=== PATIENT | male | born 1985 | race African-American/Black ===

== ENCOUNTER 2016-09-10 22:13 | Inpatient (IN) | payer OTHER, MEDICARE ==
[~2016-09-10] VITALS: Ht 175.3 cm; Wt 97.5 kg
[~2016-09-10 22:13] MED LIST: RISPERDAL25 MG/2 ML INJ; RISPERIDONE2 M1 PO; TRAZODONE HCL50 M1 PO; VYVANSE30 M1
[2016-09-10] MEDS ORDERED: BENZTROPINE MESY1 M1 PO (22:21)
[2016-09-10] MEDS ORDERED: RISPERIDONE2 M1 PO (22:22)
--- NOTE | 2016-09-10 22:38 | ED PSYCHIATRIC COMPLAINT ---
History of Present Illness General Chief Complaint: Psychiatric Related Complaint Stated Complaint: BIBA FOR ANXIETY Source: patient Exam Limitations: no limitations Vital Signs & Intake/Output Vital Signs & Intake/Output Vital Signs Date Time Temp Pulse Resp B/P B/P Pulse O2 O2 Flow FiO2 Mean Ox Delivery Rate 09/11 0724 98.6 67 16 111/61 09/10 2231 97.8 60 18 106/57 100 Room Air ED Intake and Output 09/11 0000 09/10 1200 Intake Total Output Total Balance Patient 215 lb Weight Weight Reported by Patient Measurement Method Allergies Coded Allergies: divalproex sodium (From DEPAKOTE) (Mild, UPSET STOMACH 11/10/15) quetiapine (From SEROQUEL) (Mild, ABDOMINAL CRAMPING 11/10/15) Triage Note: PT WITH HX PTSD AND SCHIZOPHRENIA BIBA FROM TRANSITIONAL HOME FOR ANXIETY. PT REPORTS MIND RACING, FEELING SCATTERED. PT DENIES SI/HI. PT A/O X4. PT SPEAKING SOFTLY AND LOW. PT HAS NO PHYSICAL COMPLAINTS. Triage Nurses Notes Reviewed? yes Onset: Gradual Duration: week(s): Severity: mild, moderate Associated Symptoms: anxiety, PTSD HPI: 30-year-old gentleman history of schizophrenia presents from his transitional home with a history of racing in disorganized thoughts. Per the transitional home, he has been having these disorganized racing thoughts. He affirms that he has been feeling more anxious lately. He denies suicidality, homicidality, hallucinations. He denies drug use. (JESSICA FARRAR,AGAPITO Coyne) Reconcile Medications Benztropine Mesylate 1 MG TABLET 1 TAB PO BID MENTAL HEALTH (Reported) Risperidone 2 MG TABLET 1 TAB PO D MENTAL HEALTH (Reported) Risperidone Microspheres (Risperdal Consta) (Unknown Strength) SYRINGE ( Unknown Dose) INJ Q2W MENTAL HEALTH (Reported) (JAMES FARRAR,ISABELA No) Past History Travel History Traveled to [place] past 21 day No Medical History Any Pertinent Medical History? see below for history Neurological: CONCUSSION 2004 EENT: NONE Cardiovascular: NONE Respiratory: NONE Gastrointestinal: NONE Hepatic: NONE Renal: NONE Musculoskeletal: NONE Psychiatric: bipolar disease, schizophrenia Endocrine: NONE Blood Disorders: NONE Cancer(s): NONE History of MRSA: No History of VRE: No History of CDIFF: No Surgical History Surgical History: unobtainable (per patient), N Psychosocial History Who do you live with Family Services at Home None What is your primary language Polish Tobacco Use: Current Daily Use Daily Tobacco Use Amount/Type: => 5 Cigarettes daily Family History Family History, If Any: FATHER (Diabetes). Hx Contributory? No (JESSICA FARRAR,AGAPITO Coyne) Review of Systems Review of Systems Constitutional: Reports: no symptoms. EENTM: Reports: no symptoms. Respiratory: Reports: no symptoms. Cardiovascular: Reports: no symptoms. GI: Reports: no symptoms. Genitourinary: Reports: no symptoms. Musculoskeletal: Reports: no symptoms. Skin: Reports: no symptoms. Neurological/Psychological: Reports: no symptoms. Hematologic/Endocrine: Reports: no symptoms. Immunologic/Allergic: Reports: no symptoms. All Other Systems: Reviewed and Negative (JESSICA FARRAR,AGAPITO Coyne) Physical Exam Physical Exam General Appearance: well developed/nourished, mild distress Head: atraumatic Eyes: Bilateral: PERRL, EOMI. Ears, Nose, Throat: normal pharynx, normal ENT inspection, hearing grossly normal Neck: normal inspection, supple Respiratory: normal breath sounds Cardiovascular: regular rate/rhythm Gastrointestinal: soft, non-tender Extremities: normal range of motion Neurological/Psychiatric: no motor/sensory deficits, calm, flat, oriented x 3 Appearance/Memory/Insight: appropriate appearance, impaired insight Behavoir/Eye Contact/Speech: cooperative Skin: intact, normal color, warm/dry SAD PERSONS SAD PERSONS Response Value Male Sex? yes 1 Depression/Hopelessness? yes 2 Social Support? has support 0 Total 3 SAD PERSONS Done? yes (JESSICA FARRAR,AGAPITO Coyne) Progress Differential Diagnosis: IT'S fRENI VERSUS DEPRESSION VERSUS ptsd VERSUS OTHER Plan of Care: Orders Procedure Date/time Status Regular Diet 09/11 L Active Regular Diet 09/11 B Complete EKG 09/11 1200 Active Patient Data - inpatient psych 09/11 1046 Active Admit to inpatient psych 09/11 1046 Active Continuous Observation Monitor 09/11 0820 Active Continuous Observation Monitor 09/11 0001 Active URINE DRUG SCREEN FOR ER ONLY 09/11 0001 Complete ETHANOL 09/11 0001 Complete COMPREHENSIVE METABOLIC PANEL 09/11 0001 Complete CBC WITHOUT DIFFERENTIAL 09/11 0001 Complete ED CRISIS PSYCH CONSULT 09/11 0001 Active Vital Signs 09/11 UNK Active Activity/Ambulation 09/11 UNK Active Current Medications Sig/Carson Start time Last Medication Dose Stop Time Status Admin Risperidone 25 MG Q 2 WEEKS 09/14 1000 UNVr (Risperdal) Risperidone 2 MG DAILY 09/12 1000 UNVr (Risperidone) Benztropine Mesylate 1 MG BID 09/11 2200 UNVr (Cogentin 1 MG Tablet) Risperidone 2 MG ONCE ONE 09/11 1030 CAN (Risperidone) 09/11 1031 Benztropine Mesylate 1 MG BID 09/11 1014 UNVr 09/11 (Cogentin 1 MG 1030 Tablet) Laboratory Tests 09/11/16 0727: Urine Opiates Screen < 100.00, Methadone Screen < 40, Barbiturate Screen < 60, Ur Phencyclidine Scrn < 6.00, Amphetamines Screen < 100, U Benzodiazepines Scrn < 85, Urine Cocaine Screen < 50, Urine Cannabis Screen < 5.00 09/11/16 0025: Anion Gap 12, Estimated GFR > 60, BUN/Creatinine Ratio 8.9, Glucose 107 H, Calcium 9.1, Total Bilirubin 0.5, AST 21, ALT 33, Alkaline Phosphatase 75, Total Protein 6.9, Albumin 4.0, Globulin 2.9, Albumin/Globulin Ratio 1.4, CBC w Diff NO MAN DIFF REQ, RBC 4.47 L, MCV 83.8, MCH 27.8, RDW 12.6, MPV 8.0, Gran % 35.0 L, Lymphocytes % 54.2 H, Monocytes % 7.4, Eosinophils % 3.0, Basophils % 0.4, Absolute Granulocytes 1.8, Absolute Lymphocytes 2.8, Absolute Monocytes 0.4, Absolute Eosinophils 0.2, Absolute Basophils 0, PUBS MCHC 33.1, Serum Alcohol < 10.0 Hand-Off Endorsed To: ISABELA RAMIREZ MD Endorsed Time: 07 Pending: consult, labs (AGAPITO LOPEZ MD) Departure Departure Disposition: STILL A PATIENT Condition: Stable Clinical Impression Primary Impression: Schizophrenia Referrals: PATIENT HAS NO PRIMARY CARE DR (PCP/Family) Departure Forms: Customer Survey General Discharge Information (JESSICA FARRAR,AGAPITO Coyne) Psych Admission Note Psychiatric Admission: I have seen and evaluated FELICIA MORALES JR. I have also reviewed all the pertinent lab results and diagnostic results. FELICIA MORALES JR will be admitted to our inpatient Psychiatric unit for treatment and care. (ISABELA RAMIREZ MD)
--- NOTE | 2016-09-10 22:41 | NUR ---
PT WANDED AND CHANGED INTO PAPER SCRUBS. ONE BAG OF CLOTHES AND ONE BAG OF VALUABLES LOCKED UP
--- NOTE | 2016-09-10 23:01 | NUR ---
ASSUMED PRIMARY CARE OF PT. +ANXIETY "MIND RACING" DENIES SI/HI.
[2016-09-11 00:44] LABS: ABSOLUTE BASOPHIL COUNT 0 /CUMM (0.0-0.2); ABSOLUTE EOSINOPHIL COUNT 0.2 /CUMM (0.0-0.7); ABSOLUTE GRANULOCYTE CT 1.8 /CUMM (1.4-6.5); ABSOLUTE LYMPH COUNT 2.8 /CUMM (1.2-3.4); ABSOLUTE MONOCYTE COUNT 0.4 /CUMM (0.10-0.60); BASOPHIL % 0.4 % (0.0-2.0); HEMATOCRIT 37.5 % (42-52); MEAN CORPUSCULAR HGB 27.8 PG (27.0-31.0); MEAN CORPUSCULAR HGB CONC 33.1 G/DL (33.0-37.0); MEAN CORPUSCULAR VOLUME 83.8 FL (80.0-94.0); PLATELET COUNT 263 /CUMM (130-400); RBC DISTRIBUTION WIDTH 12.6 % (11.5-14.5); RED BLOOD CELL CT 4.47 /CUMM (4.70-6.10); WHITE BLOOD CELL COUNT 5.2 /CUMM (4.8-10.8)
--- NOTE | 2016-09-11 00:49 | NUR ---
PT SLEEPING SOUNDLY WITH EVEN NONLABORED RESPIRATIONS. SITTER IN PLACE
--- NOTE | 2016-09-11 02:18 | NUR ---
PT HAS YET TO PROVIDE URINE SAMPLE. SLEEPING SOUNDLY WITH EASY WOB. SITTER IN PLACE.
--- NOTE | 2016-09-11 05:45 | NUR ---
PT CONTINUES TO SLEEP. REGULAR RESPIRATIONS NOTED. SITTER REMAINS IN ATTENDANCE
--- NOTE | 2016-09-11 07:27 | NUR ---
PT PROVIDED URINE. URINE TRIO SENT. AWARE OF INITIAL CRISIS EVAL THIS AM. Informed waiting has been performed.
--- NOTE | 2016-09-11 09:26 | NUR ---
SPOKE WITH YESSENIA FROM [facility] IN [place]. THEY CAN BE CALLED WITH QUESTIONS REGARDING PT. [phone].
--- NOTE | 2016-09-11 10:15 | NUR ---
OFFERED TO MOVE PT OUT OF THE HALLWAY AND INTO A ROOM. DECLINING AT THIS TIME.
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
--- NOTE | 2016-09-11 10:30 | NUR ---
CRISIS WITH PT.
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
--- NOTE | 2016-09-11 12:28 | NUR ---
SPOKE WITH [facility] IN [facility] FOR FINGER FOOD REGULAR DIET LUNCH TRAY.
--- NOTE | 2016-09-11 12:30 | NUR ---
PLAN IS FOR ADMISSION. Informed waiting has been performed.
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
--- NOTE | 2016-09-11 14:30 | NUR ---
CONTINUES TO AWAIT BED IN [facility]. Informed waiting has been performed.
--- NOTE | 2016-09-11 15:51 | NUR ---
REPORT GIVEN TO CPS
--- NOTE | 2016-09-11 15:56 | NUR ---
1 BELONGINGS BAG AND 1 VALUABLES BAG TAKEN OUT OF CLOSET AND ED SAFE FOR TRANSPORT. VOLUNTARY FORM SENT WITH PAPERWORK. PT CALM, COOPERATIVE, A+OX4.
[2016-09-11 16:45] VITALS: BP 136/63
[2016-09-11] MEDS ORDERED: INVEGA3 MG IM (17:03)
--- NOTE | 2016-09-11 17:31 | NUR ---
Pt present within the community on the periphery and intermittently engaging with peers and staff, pleasant, calm and cooperative. Pt is also disorganized at times and reported that his transitional housing gives him "a hard time" and that they on a consistent basis "record me and play it on reality T.V. just look it up and you'll see me, they make me look bad". When asked directly denies SI/HI/hallucinations however does appear to be "zoning out" and staring off and internally preoccupied throughout our admission intake and required redirection back to the conversation. No other overt psychotic s/sx observed or reported. Pt reports + energy/sleep and appetite. Skin that is visible is clean dry and intact and denies any other alterations or abnormalities that are not visible, denies any pain or medical issues just "I have PTSD". At this point pt is stable with no issues or complaints.
--- NOTE | 2016-09-11 19:09 | History & Physical ---
General Information and HPI MD Statement: I have seen and personally examined CARMEN ZURITAFELICIA and documented this H&P. The patient is a 30 year old M who presented with a patient stated chief complaint of [medical evaluation]. Source of Information: patient Exam Limitations: clinical condition, poor historian History of Present Illness: 30 YO AA Male with PMHx of schizophrenia came to ER from his transitional home for racing and disorganized thoughts. He was sleeping when I went to see him, and woke up little disoriented. Later he was more composed in his thoughts but still delayed responses, staring spells. On ROS, he complains of chronic non-productive cough since one month, "seasonal " according to him and does not bother him, not associated with CP, SOB, fever, chills, URI symptoms. He also mentioned that since 2 weeks he has been getting increased frequency in urination and itching but no burning, lower abdo or back pain, penile discharge. He thought he may have "venereal disease" and asked "them" to check (not sure whom, he is not clear). He denied any intercourse in last one year and used to be protected before that. He said that he has been feeling more anxious lately but denies suicidality, homicidality, hallucinations. No headache, dizziness, vision problems, diarrhea, vomiting, constipation or skin rash. Not been incarcerated recently. Allergies/Medications Allergies: Coded Allergies: divalproex sodium (From DEPAKOTE) (Mild, UPSET STOMACH 11/10/15) quetiapine (From SEROQUEL) (Mild, ABDOMINAL CRAMPING 11/10/15) Home Med list Benztropine Mesylate 1 MG TABLET 1 TAB PO BID MENTAL HEALTH (Reported) Paliperidone (Invega) (Unknown Strength) TAB.ER.24 (Unknown Dose) IM Q 2 WEEKS schizo (Reported) Risperidone 2 MG TABLET 1 TAB PO D MENTAL HEALTH (Reported) Risperidone Microspheres (Risperdal Consta) (Unknown Strength) SYRINGE ( Unknown Dose) INJ Q2W MENTAL HEALTH (Reported) Compliance With Home Meds: UNKNOWN Past History Travel History Traveled to [place] past 21 day No Medical History Neurological: CONCUSSION 2004 EENT: NONE Cardiovascular: NONE Respiratory: NONE Gastrointestinal: NONE Hepatic: NONE Renal: NONE Musculoskeletal: NONE Psychiatric: bipolar disease, schizophrenia Endocrine: NONE Blood Disorders: NONE Cancer(s): NONE History of MRSA: No History of VRE: No History of CDIFF: No Isolation History: Standard Influenza Vaccine: 02/14/16 Surgical History Surgical History: unobtainable (per patient), N Past Family/Social History Family History Relations & Conditions if any FATHER (Diabetes). Psychosocial History Where do you live? Other Services at Home: None Primary Language: Sinhala Smoking Status: Current Everyday Smoker (1 ppd) ETOH Use: occasional use Illicit Drug Use: denies illicit drug use Functional Ability ADLs Independent: dressing, eating, toileting, bathing. Ambulation: independent IADLs Independent: transportation, medication admin. Sexual History Past Sexual History Unobtainable at this time Review of Systems Review of Systems Constitutional: Reports: no symptoms. EENTM: Reports: no symptoms. Cardiovascular: Reports: no symptoms. Respiratory: Reports: cough. Denies: hemoptysis, orthopnea, short of breath, sputum production, stridor, wheezing. GI: Reports: no symptoms. Genitourinary: Reports: frequency, urgency. Denies: discharge, dysuria, hesitation, nocturia, pain. Musculoskeletal: Reports: no symptoms. Skin: Reports: no symptoms. Neurological/Psychological: Reports: no symptoms. Hematologic/Endocrine: Reports: no symptoms. All Other Systems: Reviewed and Negative Exam & Diagnostic Data Last 24 Hrs of Vital Signs/I&O Vital Signs Date Time Temp Pulse Resp B/P B/P Pulse O2 O2 Flow FiO2 Mean Ox Delivery Rate 09/11 2004 97.7 56 138/58 09/11 1645 97.9 60 136/63 09/11 1450 96.3 52 14 115/61 100 Room Air 09/11 1219 96.9 81 16 114/57 98 Room Air 09/11 0724 98.6 67 16 111/61 09/10 2231 97.8 60 18 106/57 100 Room Air Intake & Output 09/11 0000 09/11 0800 09/11 1600 Intake Total Output Total Balance Patient 97.522 kg Weight Weight Reported by Patient Measurement Method Physical Exam General Appearance Alert, Oriented X3, Cooperative, No Acute Distress Skin No Rashes, No Breakdown HEENT Atraumatic, PERRLA, EOMI, left eye: mild droop but no Ptosis Neck Supple, No JVD, No thryomegaly, +2 Carotid Pulse wo Bruit Lymphatic Cervical nl Cardiovascular Regular Rate, Normal S1, Normal S2, No Murmurs Lungs Clear to Auscultation, Normal Air Movement Abdomen Normal Bowel Sounds, Soft, No Tenderness Neurological Exam Findings: Normal Gait, Normal Speech, Strength at 5/5 X4 Ext, Normal Tone, Sensation Intact, Cranial Nerves 3-12 NL, Reflexes 2+ Cranial Nerves II through XII: 3 to 12 intact Extremities No Clubbing, No Cyanosis, No Edema, Normal Pulses Vascular Normal Pulses, Pulses Symmetrical Last 24 Hrs of Labs/Maykel: Laboratory Tests 09/11/16726: Urine Opiates Screen < 100.00, Methadone Screen < 40, Barbiturate Screen < 60, Ur Phencyclidine Scrn < 6.00, Amphetamines Screen < 100, U Benzodiazepines Scrn < 85, Urine Cocaine Screen < 50, Urine Cannabis Screen < 5.00, Urine Color YEL, Urine Clarity CLEAR, Urine pH 6.0, Ur Specific [place] 1.020, Urine Protein NEG, Urine Ketones NEG, Urine Nitrite NEG, Urine Bilirubin NEG, Urine Urobilinogen 0.2, Ur Leukocyte Esterase NEG, Ur Microscopic EXAM NOT REQUIRED, Urine Hemoglobin NEG, Urine Glucose NEG 09/11/16 0025: Anion Gap 12, Estimated GFR > 60, BUN/Creatinine Ratio 8.9, Glucose 107 H, Calcium 9.1, Total Bilirubin 0.5, AST 21, ALT 33, Alkaline Phosphatase 75, Total Protein 6.9, Albumin 4.0, Globulin 2.9, Albumin/Globulin Ratio 1.4, CBC w Diff NO MAN DIFF REQ, RBC 4.47 L, MCV 83.8, MCH 27.8, RDW 12.6, MPV 8.0, Gran % 35.0 L, Lymphocytes % 54.2 H, Monocytes % 7.4, Eosinophils % 3.0, Basophils % 0.4, Absolute Granulocytes 1.8, Absolute Lymphocytes 2.8, Absolute Monocytes 0.4, Absolute Eosinophils 0.2, Absolute Basophils 0, PUBS MCHC 33.1, Serum Alcohol < 10.0 Microbiology 09/11 726 URINE ROUT: Urine Culture - RECD Assessment/Plan Assessment: # PTSD, schizoaffective disorder: agree with Psychiatry # Chronic non-productive cough : clear to auscultate, no constitutional symptoms. Conservative management # itching and burning in Urine: UA, culture, GC, Chlamydia DNA probe As Ranked By This Provider Problem List: 1. Anxiety 2. Urinary frequency Miscellaneous Miscellaneous Documentation Attending Case Discussed With: KIRBY FARRAR,SHANNON Olea Primary Care Physician: PATIENT HAS NO PRIMARY CARE DR Patient sees these Specialists none Level of Patient Care: YOUSIF Quiroga
[2016-09-11 20:05] VITALS: BP 138/58
--- NOTE | 2016-09-11 23:03 | NUR ---
PATIENT HAS BEEN CALM AND COOPERATIVE ALL SHIFT, IN [place] AT TIMES, PLEASANT; DENIES S/I, H/I, A/H, V/H; PATIENT COMPLIANT WITH TREATMENT PLAN.
--- NOTE | 2016-09-12 00:08 | Admission Certification ---
Admission Certification Certification Statement - As attending physician, I certify that at the time of - admission, based on clinical presentation, severity of - symptoms, need for further diagnostic testing and - therapeutic interventions, and risk of adverse outcomes - without in-hospital treatment, in my clinical assessment, - this patient requires an acute hospital stay for a minimum - of two nights or longer. I have also considered psychsocial - factors such as support system, advanced age, financial - issues, cognitive issues, and failed out-patient treatments, - past re-admission history, safety of patient, and lack of - compliance as applicable. Specific rationale supporting this admission is: PTSD, schizoaffective disorder
--- NOTE | 2016-09-12 05:27 | NUR ---
PATIENT SLEPT ALL NIGHT.
[2016-09-12 08:04] VITALS: BP 123/77
--- NOTE | 2016-09-12 12:07 | CP SOUTH PROGRESS NOTE PSYCH ---
Psych (Inpt) Progress Note Progress Note Include the following elements, when applicable: Involvement in the active treatment of the patient with behavioral observations of the patient and the patient's response to the treatment. Review of the ongoing treatment process in the context of the treatment plan. Indication of how multi-disciplinary staff members are carrying out the treatment plan. Plans for future interventions and recommendations for revision of the treatment plan. Liaison with other physicians/providers. Progress Note: Pt notes that "I had too much sugar, a sugar high" which led to his hospitalization. Does want to remain on the risperidone for the time being. Concerned about oversedation with consta. Denies SI or HI. Denies AVHs though michelle KENT. Current Medications Sig/[place] Start time Last Medication Dose Route Stop Time Status Admin Benztropine Mesylate 1 MG BID 09/11 2200 AC 09/12 PO 0951 Hydroxyzine HCl 25 MG 4 TIMES/DAY PRN 09/11 1245 AC PO Nicotine 7 MG DAILY 09/12 1000 AC TOP Nicotine 2 MG Q2P PRN 09/11 1230 AC PO Risperidone 25 MG Q 2 WEEKS 09/14 1000 AC IM Risperidone 3 MG DAILY 09/13 1000 UNVr PO Risperidone 2 MG DAILY 09/12 1000 DC 09/12 PO 0951 Trazodone HCl 50 MG AT BEDTIME NEED.. 09/11 1245 AC PO Laboratory Tests 09/12 09/11 0605 0727 Chemistry Hemoglobin A1c (4.2 - 5.8 %) Pending Triglycerides (<150 mg/dL) 90 Cholesterol (< 200 MG/DL) 121 LDL Cholesterol, Calc (65 - 129 mg/dL) 73 HDL Cholesterol (40 - 60 mg/dL) 30 L Cholesterol/HDL Ratio (0.00 - 4.88 %) 4 Vitamin B12 (239 - 931 pg/mL) 301 TSH &T3 &Free T4 Intrp (0.27 - 4.20 uIU/mL) 1.490 Toxicology Urine Opiates Screen (>2000 NG/ML) < 100.00 Methadone Screen (>300 NG/ML) < 40 Barbiturate Screen (>200 NG/ML) < 60 Ur Phencyclidine Scrn (>25 NG/ML) < 6.00 Amphetamines Screen (>1000 NG/ML) < 100 U Benzodiazepines Scrn (>200 NG/ML) < 85 Urine Cocaine Screen (>300 NG/ML) < 50 Urine Cannabis Screen (>50 NG/ML) < 5.00 Urines Urine Color (YEL,AMB,STR) YEL Urine Clarity (CLEAR) CLEAR Urine pH (5.0 - 8.0) 6.0 Ur Specific [place] (1.001 - 1.035) 1.020 Urine Protein (NEG,<30 MG/DL) NEG Urine Ketones (NEG) NEG Urine Nitrite (NEG) NEG Urine Bilirubin (NEG) NEG Urine Urobilinogen (0.1 - 1.0 EU/dl) 0.2 Ur Leukocyte Esterase (NEG) NEG Ur Microscopic EXAM NOT REQUIRED Urine Hemoglobin (NEG) NEG Urine Glucose (N MG/DL) NEG 09/11 0025 Chemistry Sodium (137 - 145 mmol/L) 141 Potassium (3.5 - 5.1 mmol/L) 4.1 Chloride (98 - 107 mmol/L) 105 Carbon Dioxide (22 - 30 mmol/L) 25 Anion Gap (5 - 16) 12 BUN (9 - 20 mg/dL) 8 L Creatinine (0.7 - 1.2 mg/dL) 0.9 Estimated GFR (>60 ml/min) > 60 BUN/Creatinine Ratio (7 - 25 %) 8.9 Glucose (65 - 99 mg/dL) 107 H Calcium (8.4 - 10.2 mg/dL) 9.1 Total Bilirubin (0.2 - 1.3 mg/dL) 0.5 AST (17 - 59 U/L) 21 ALT (21 - 72 U/L) 33 Alkaline Phosphatase (< 127 U/L) 75 Total Protein (6.3 - 8.2 g/dL) 6.9 Albumin (3.5 - 5.0 g/dL) 4.0 Globulin (1.9 - 4.2 gm/dL) 2.9 Albumin/Globulin Ratio (1.1 - 2.2 %) 1.4 Hematology CBC w Diff NO MAN DIFF REQ WBC (4.8 - 10.8 /CUMM) 5.2 RBC (4.70 - 6.10 /CUMM) 4.47 L Hgb (14.0 - 18.0 G/DL) 12.4 L Hct (42 - 52 %) 37.5 L MCV (80.0 - 94.0 FL) 83.8 MCH (27.0 - 31.0 PG) 27.8 RDW (11.5 - 14.5 %) 12.6 Plt Count (130 - 400 /CUMM) 263 MPV (7.4 - 10.4 FL) 8.0 Gran % (42.2 - 75.2 %) 35.0 L Lymphocytes % (20.5 - 51.1 %) 54.2 H Monocytes % (1.7 - 9.3 %) 7.4 Eosinophils % (0 - 5 %) 3.0 Basophils % (0.0 - 2.0 %) 0.4 Absolute Granulocytes (1.4 - 6.5 /CUMM) 1.8 Absolute Lymphocytes (1.2 - 3.4 /CUMM) 2.8 Absolute Monocytes (0.10 - 0.60 /CUMM) 0.4 Absolute Eosinophils (0.0 - 0.7 /CUMM) 0.2 Absolute Basophils (0.0 - 0.2 /CUMM) 0 PUBS MCHC (33.0 - 37.0 G/DL) 33.1 Toxicology Serum Alcohol (<10 MG/DL) < 10.0 Vital Signs Date Time Temp Pulse Resp B/P B/P Pulse O2 O2 Flow FiO2 Mean Ox Delivery Rate 09/12 0804 98.4 62 123/77 09/11 2004 97.7 56 138/58 09/11 1645 97.9 60 136/63 09/11 1450 96.3 52 14 115/61 100 Room Air 09/11 1219 96.9 81 16 114/57 98 Room Air MSE Appears as stated age. Cooperative behavior, good, no eye contact. Nl speech rate and prosody. No psychomotor retardation or agitation. Mood OK, I had a sugar high Affect bizzare, constricted, appropriate, non-liable. Linear and goal directed thought process. Denies SI or HI. Does not appear to be responding to internal stimuli. Denies AVHs, ?paranoia, ?delusions. I/J: limited Pt with hx of schizophrenia now with worsening psychosis. - Increase risperidone to 3mg daily - Consta ordered for TuesdaySeptember 14 at 25mg, however, given worsening psychosis and low dose, would consider increase to 37.5mg dose for next administration though pt notes that was previously on higher dose (37.5mg or 50mg, pt unsure) and had excessive sedation. Need treatment hx to determine if can increase. If not, consider paliperidone or another long-acting agent. - Encourage groups - COllateral from outpt tx needed
[2016-09-12 12:21] VITALS: BP 139/61
--- NOTE | 2016-09-12 13:38 | NUR ---
PT IS ISOALTIVE IN ROOM FOR MOST OF THE SHIFT. PT HAS LITTLE TO NO INTERACTION WITH STAFF AND OTHER PTS. PT IS COMPLIANT AND COOPERATIVE WITH UNIT RULES. PT IS NOT ATTENDING GROUPS. PT MOOD IS STABLE WITH A CONSTRICTED AFFECT. PT DENIES SI THOUGHTS.
[2016-09-12 15:49] VITALS: BP 133/71
[2016-09-12 20:21] VITALS: BP 139/60
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
--- NOTE | 2016-09-12 22:39 | NUR ---
PT IN HIS ROOM MOST OF THE TIME. PT SEEMS TO BE RESPONDING TO INTERNAL STIMULI AT TIMES EVIDENT BY HIM LAUGHING AND SMILING TO SELF. NO MAJOR CONCERNS OR ISSUES TO REPORT.
--- NOTE | 2016-09-13 05:43 | NUR ---
PATIENT APPEARED TO BE SLEEPING QUIETLY, LYING STILL WITH EYES CLOSED, FOR THE FIRST FEW HOURS OF THE SHIFT; HE CAME TO THE NURSING STATION AT 0400, STATING HE WAS UNABLE TO SLEEP, DUE TO HAVING SLEPT A LOT DURING THE PREVIOUS DAY; HE WAS EDUCATED TO TRY NOT TO SLEEP DURING THE DAY TODAY; HE STATED IT WOULD BE HARD THERE WERE NO BASKETBALL HOOPS OR VIDEO GAMES HERE, AND STATED "I DON'T LIKE GROUPS."
[2016-09-13 08:08] VITALS: BP 132/76
[2016-09-13 12:49] VITALS: BP 135/69
--- NOTE | 2016-09-13 13:50 | NUR ---
PT HAS BEEN WITHDRAWN AND ISOLATIVE IN BED- SLEEPING THE MAJORITY OF THE DAY. PT PRESENT ON UNIT FOR MEALS AND VITALS. PT DENIES SI AT THIS TIME, NO COMPLAINTS OFFERED. PT HAS MINIMAL INTERACTION WITH PEERS AND STAFF. PT IS REFUSING GROUPS. PT HAS A STABLE AND CONSTRICTED AFFECT. VITALS ARE STABLE, APPETITE IS GOOD.
--- NOTE | 2016-09-13 15:48 | CP SOUTH PROGRESS NOTE PSYCH ---
Psych (Inpt) Progress Note Progress Note Include the following elements, when applicable: Involvement in the active treatment of the patient with behavioral observations of the patient and the patient's response to the treatment. Review of the ongoing treatment process in the context of the treatment plan. Indication of how multi-disciplinary staff members are carrying out the treatment plan. Plans for future interventions and recommendations for revision of the treatment plan. Liaison with other physicians/providers. Progress Note: PSYCHIATRIST NOTE, 09/13/2016: I discussed this patient's progress thus far, current mental status, treatment and discharge planning with staff team today in the daily morning ITTM and also met with him myself in individual session. He had woken up at about 4am but was able to return to sleep eventually; patient noted that he had slept much of the day before; night nurse reminded him to try to stay up during the day today, so he will sleep better tonight. Patient spoke very freely, was mildly pressured, tangential to loose, unrealistic but not frankly delusional or significantly paranoid with me and said he was not experiencing any hallucinations at this time. He denied feeling sedated on current medication regimen; we discussed trying to adjust patient's meds so that oral medication would be just PRN and Consta raised to a level sufficient to manage his symptoms ; he agreed to my increasing dose of Risperdal Consta (which is due tomorrow 09/14) by 50%, from 25mg to 37.5mg I.M. Q2W, while reducing oral Risperdal by 33 % from 3mg to 2mg HS. Patient may be schizoaffective and might benefit from augmentation by a primary mood stabilizer once maximum benefit from Risperdal is achieved; [place] would be the likely choice, as patient experienced side effects on Depakote though they do not sound completely prohibitive to a future re-trial on that medication. Patient spent a good deal of time on the subject of smoking cessation and came back to the subject several times during the interview; we discussed this issue at length; he is currently using the nicotine gum (chewing on a piece while we spoke together) but though he said he was having some difficulty with cravings for cigarettes/tobacco, did not want to increase the gum from 2mg to 4mg a dose, but I did decrease the interval between PRN doses of same; he rejected the nicotine patch, had not used the order written for him and I discontinued it. Though I have not heard from patient or reviewed history that he is experiencing any interpersonal or adjustment problems in his [facility] supervised housing on [facility], this should be further explored.
[2016-09-13 16:12] VITALS: BP 135/53
--- NOTE | 2016-09-13 17:08 | SOCIAL WORKER PROG NOTE PSYCH ---
Social Work Progress Note Progress Note Yovana talked about needing a medication adjustment. Reported that he lives in Care housing and that he has lived there for a year now. When asked how he likes it? He said "I don't have a choice". He was able to say he appreciates some of the staff support there. He recognizes another peer on the unit who lives there. He sees Dr. Nash for medication management and has Mera Proctor as a therapist. I didn't pickler helper on much psychosis during our discussion. He did tell me that he had urinated outside a couple of times before coming to the hospital and that it was from the vitamins he was on. He presents a little disorganized. He didn't elaborate on much during the conversation in terms of symptoms. He reports working out is a big thing for him and that he lost 60 pounds over the past 4-5 months. He likes to play basketball and lift weights. He is working on getting a job possibly with the [employer] in the [employer] stand. He reports feeling more restlessness and boredom. He has periods of irritability and agitation where he feels like "punching people in the face." He reports being able to control this impulse and doesn't want to fight anyone. He is hoping to leave on Tuesday. He gave me permission to call his Aunt Darci Troy and have her here for a supportive meeting. [phone]. I called and left a message.
--- NOTE | 2016-09-13 17:08 | SOCIAL WORKER TX PLAN PSYCH ---
Treatment Plan - Please Document: - Evidence that there is ongoing collaboration between - the patient and the interdisciplinary team, - including the patient's active participation and - responsibility for engaging in the treatment regimen, - and that the treatment plan is individualized and - relevant to the patient's conditions. - Treatment plan should reflect documentation indicating - that all active therapeutic efforts are included. Strengths/Capabilities: has participated in tx, support of aunt, stated "My family is always there for me." Physical Limitations (Interventions): none known Patient Identified Trmt Goals: "I need my medication looked at" Discharge Plan: Return to [facility] supportive housing and outpatient services with [facility] Problem/Goals #1 Problem #1: psychosis Goal (Short Term): patient will explore medication changes with the psychiatrist Goal (Student Accounts Coordinator): patient will be able to tolerate conversation and interaction with others on the unit. Interventions: patient will be offered medication management with the psychiatrist, patient will be offered groups on symptom management, coping skills group, focus group, goals group. Automatic Spinning Lathe Setter will meet daily and assess thoughts for psychosis. lubrication worker will coordinate a family meeting and coordinate with outpatient providers to plan for aftercare. DSM5/PS Stressors/Medical Prob Diagnosis' (DSM 5, Stressors, Medical): F25.0 Schizoaffective disorder bipolar type Current GAF: 30 Treatment Team - Responsibilities of members of the treatment team include: - Medication Management- MD or VECTOR CONTROL SPECIALIST - Medication Administration and Monitoring- Nurse - Group Therapy- Occupational Therapist - 1:1 Therapy,Disch Planning,family involvement-Automatic Spinning Lathe Setter
[2016-09-13 19:53] VITALS: BP 142/70
--- NOTE | 2016-09-13 22:23 | NUR ---
PT IS COOPERATIVE WITH STAFF AND PEERS,AND COMPLIANT WITH UNIT RULES. OFTEN IN [place],INTERACTING WELL WITH OTHERS. PT AT TIMES DOES HAVE SMALL OUTBURSTS, THOUGH THESEUSUALLY PASS QUICKLY.MOOD IS STABLE, AFFECT IS BRIGHT MOSTLY BUT APPEARS TO EXPRESS FULL RANGE AFFECT WELL. COMMUNICATION IS MOSTLY ORGANIZED, APPEARS TO BE NORMALIN MOST REPECTS.APPETITE IS NORMAL. PT DENIES SI AT THIS TIME.
--- NOTE | 2016-09-14 05:33 | NUR ---
PATIENT SLEPT ALL NIGHT.
[2016-09-14 07:49] VITALS: BP 121/72
--- NOTE | 2016-09-14 11:57 | NUR ---
PT ISOLATED IN HIS ROOM MOST OF THE MORNING. HE WAS OOB FOR VS AND MEDS AND MEALS. HE REFUSED ALL GROUPS. HE IS COMPLIANT WITH HIS MED REGIME AND WHEN ASKED HE DENIED ANY THOUGHTS OF SUICIDE OR SELF HARM
[2016-09-14 12:09] VITALS: BP 132/63
--- NOTE | 2016-09-14 13:13 | NUR ---
Patient is present in the community, A&O X 3, compliant with medication but does not want to attend ay of the group therapies/ activities. Patghient report goood night sleep and and appetite, interacts with 0ther peers and staff member, Mood is stable with apathetic affect, denies any AH/VH, thought of self-harm and to someone else.
--- NOTE | 2016-09-14 16:00 | CP SOUTH PROGRESS NOTE PSYCH ---
Psych (Inpt) Progress Note Progress Note Include the following elements, when applicable: Involvement in the active treatment of the patient with behavioral observations of the patient and the patient's response to the treatment. Review of the ongoing treatment process in the context of the treatment plan. Indication of how multi-disciplinary staff members are carrying out the treatment plan. Plans for future interventions and recommendations for revision of the treatment plan. Liaison with other physicians/providers. Progress Note: PSYCHIATRIST NOTE, 09/14/2016: I discussed this patient's progress to date, current mental status, treatment and discharge planning with staff team today in the daily morning ESTELA and Rashmi Ortiz LCSW, and I met with him together in individual session; we had hoped to meet with patient and his aunt this afternoon, but she was not able to make it in for the tentatively planned meeting. Patient had his Risperdal Consta biweekly injection today at new higher dose of 37.5mg and shows no evidence of side effects though he did appear a little sleepy (repeatedly yawning) this afternoon. Otherwise, patient is less irritable though still somewhat pressured and tangential to occasionally loose, though the latter may be fairly close to his baseline mental functioning. I will not further reduce oral Risperdal yet but the goal would be to eventually switch patient completely over to Consta at 37.5 to 50mg every two weeks. Beyond that addition of a mood stabilizer ([place], Tegretol or Lamictal) might be considered in future; the association of Depakote with significant weight gain, patient's preoccupation with not gaining weight (says he lost 60 pounds in less than the past 6 months!) and previous G.I. upset related to Depakote might preclude considering that medication. Patient once again noted his desire to stop smoking, as well as desire to supplement his diet with "lots of vitamins;" I again mentioned our Smoking Cessation Group and continued utilization of nicotine gum after discharge and my recommendation that he take just a single "men's" multi-vitamin daily, not the array of supplements he has been talking about. Patient may be ready for discharge tomorrow, 09/15/2016, or the next day.
[2016-09-14 16:32] VITALS: BP 142/67
--- NOTE | 2016-09-14 17:07 | SOCIAL WORKER PROG NOTE PSYCH ---
Social Work Progress Note Progress Note Yovana's Aunt called and left a message that sounded as if she would be available to come in for a meeting today at 3:30. I called and got her voicemail and asked her to confirm for a meeting at that time, as that worked for us here. She never called back and did not come in. Yovana went on to say that she isn't his Guardian and he didn't feel having her here was necessary. Yovana met with Dr. Mar and I. He talked about about feeling like the [facility] supportive Housing staff like to control him and his money. He gets frustrated with the idea of anyone not feeling like he is capable, as it hurts his ego. He mentioned wanting $600 of his money for his birthday. I asked what he planned to do with it? He said he wanted to put it in the bank and maybe buy some clothes. He is frustrated that he only gets $25 a week. He talked about trying to understand more about his diagnosis of schizoaffective disorder. Dr. Mar gave him an analogy of taking care of a chronic medical condition and if he takes his medication he should be ok. He has a visiting nurse at the apartment. He is looking to go home tomorrow. I will need to contact S and supportive housing staff to ensure they are prepared for him to come back tomorrow. I did call Antonella at [facility] and got his follow up appts. He can go to group and see his clinician on 09/16 at 3:[address] Nash on at 12:30pm.
[2016-09-14 20:24] VITALS: BP 149/70
--- NOTE | 2016-09-14 21:22 | NUR ---
PT IS COOPERATIVE WITH STAFF AND PEERS. PT IS OFTEN IN [place] INTERACTING TO SOME EXTENT WITH OTHERS, THOUGH MOSTLY REAMINING ALONG THE PERIPHERY. SLIGHTLY WITHDRAWN, BUT WILL INTERACT WHEN DIRECTLY ENGAGED. PT HAS BEEN OBSERVED AT TIMES TALKING TO SELF. MOOD IS STABLE, AFFECT IS BRIGHT TO FULL RNAGE, COMMUNICATION APEARS NORMAL FOR THE MOST PART, APPETITE IS NORMAL. PT DENIES SI AT THIS TIME.
[2016-09-15 08:24] VITALS: BP 116/63
--- NOTE | 2016-09-15 09:13 | SOCIAL WORKER PROG NOTE PSYCH ---
Social Work Progress Note Progress Note Called [facility] to let them know that Yovana was discharging today. They see him once a week. and help fill his med box for the week. They will see him today. Called [facility] supportive housing and spoke with Mackenzie the mail carriers supervisor there. Informed her of discharge today for Yovana. She stated that staff will pick him up at 2pm today. Yovana was sleeping late this morning. Woke him up to inform him of the discharge plan. He spoke about his frustrations with the [facility] staff, particularly his frustrations with not being able to use money for his birthday. Encouraged him to remain positive and work with his clinician at [facility]. Informed him of his follow up appts. He is happy about leaving today, but not so happy to return to current living situation.
--- NOTE | 2016-09-15 10:04 | NUR ---
PT IS SCHEDULED FOR D/C TODAY TO [facility]. HE AGREES TO FOLLOW UP WITH CARE. HE DOES TEND TO ISOLATE IN HIS ROOM DURING THE MORNING BUT HE IS OUT IN THE COMMUNITY AND MORE SOCIAL IN THE AFTERNOONS AND EVENINGS. HE DENIES ANY THOUGHTS OF SUICIDE OR SELF HARM AT THIS TIME.HE IS COMPLIANT WITH HIS MED REGIME AND HE IS CALM AND COOPERATIVE WITH STAFF AND PEERS. PT IS GIVEN EDUCATION R/T MANAGING HIS MOOD D/O AN ON SUICIDE PREVENTION
[2016-09-15 12:13] VITALS: BP 136/68
--- NOTE | 2016-09-15 12:35 | DISCHARGE SUMMARY REPORT-PSYCH ---
Visit Information Visit Dates/Diagnosis' Admission Date: 09/11/16 Discharge Date: 09/15/16 Reason for Admission: "I'm off...I need meds to help me stop smoking butts in the afternoon..." Psy Discharge Primary Diag: Schizophrenia, Schizoaffective Disorder (R/O Schizoaffective) Hospital Course Significant Lab Findings: glucose = 107; BUN = 8; HDL = 30; RBC = 4.47, hgb = 12.4, hct = 37.5, lymphs = 54.2%, grans = 35.0%; BELA = less than 10.0; urine for drugs of abuse-- negative (for complete details of all normal range laboratory data from this admission, see the electronic medical record) Course Complications: none Consultations: patient was seen for an admission medical H&P by Luz Marina Galvez M.D., and followed medically during this admission by the hospitalist staff/Replaced By [facility] medical attending physicians Allergies: Coded Allergies: divalproex sodium (From DEPAKOTE) (Mild, UPSET STOMACH 11/10/15) quetiapine (From SEROQUEL) (Mild, ABDOMINAL CRAMPING 11/10/15) Hospital Course/TX Response: (see also, all initial/admission assessments, daily M.D./AUTOMATION CONTROL TECHNICIAN and INDEPENDENT JEWELER progress notes from this admission, all of which are contained in the electronic medical record) Initially, patient was pressured, often tangential, loose or illogical, tending to unrealistic, almost grandiose statements/plans but denied current hallucinations though still upset by what he had been experiencing. He agreed to a plan to increase next Risperdal Consta dose to 37.5mg Q2W and begin gradual reduction in remaining oral dose, at first from 3mg to 2mg HS. He received the higher dose of Risperdal Consta on 09/14/2016, without complications or noted side effects. Consideration was given to introduction of a mood stabilizer, [place] or Depakote but patient wished to defer decision on this. Patient appears to be having some adjustment issues where he lives but nothing he describes sounded unreasonable or unnecessary on the part of supervisory staff; Ms. Ortiz maintained liaison with school fundraising director Mackenzie; likely this patient would find it less than ideal living anywhere there were structure and rules to follow; some of this appears to be immaturity though he is [id number] now. Patient was not irritable on day of discharge, happy to be leaving, future-oriented, euthymic. He denied daytime fatigue, and there appeared to be no problematic effects related to the increase in Risperdal Consta dose. Discharge HBIPS - Tobacco Use Treatment Offered Post DC Medications Offered: Script Given-See Med List (to continue using nicotine gum) Post DC Tobacco Treatment Plan: [facility] Appt Date: 09/29/16 Program Appt Time: 1600 (group on 09/29/2016 at 4pm) - EtOH/Drug Use D/O Treatment Offered Post DC Medications Offered: NA-No EtOH/Drug Use D/O Post DC EtOH/SubAbuse TX Plan: NA-No EtOH/Drug Use D/O Metabolic Screening - Screen if on a Neuroleptic Medication - Metabolic screening should include: - Blood Pressure, BMI, Glucose or Hgb A1c, & a - Lipid profile from within the past 365 days. Metabolic Screening () Not Applicable, patient not on a neuroleptic. OR ([x]) Patient on a neuroleptic(s) . Enter below results for Glucose or Hemoglobin A1C, and lipid panel if obtained during the last 365 days. BMI: 31.700 Blood Pressure: 136/68 Laboratory Results (If applicable): [x] glucose = 107 (drawn on 09/11/2016) glycos hgb A1c = 4.8 (drawn on 09/12/2016) cholesterol = 121 (all drawn on 09/12/2016) triglycerides = 90 HDL = 30 LDL = 73 Discharge Instructions General Discharge Information Discharge Medications: Discharge Medications (dose, route, frequency, indications): (see alsoLuiza discharge progress note from 09/15/2016) I called into [facility], [place], [place]., on date of discharge, 09/15/2016: Risperdal, 2mg: i tablet nightly at HS (2mg/night); #14 with no refill (for racing/disorganized/unclear thoughts) Risperdal Consta, 37.5m.5mg I.M. Q2W (next dose due 09/28/2016); #1 dose ( to organize/clarify thinking) Cogentin, 1mg: i tablet 2x/day (2mg daily); #28 with no refill (treat side effects--stiff muscles, tremors) patient was also encourage to continue to utilize nicotine gum, 2mg OTC to help reduce cigarette/tobacco cravings and knows he should not smoke while using the gum; he was also given an appointment card for the [facility] scheduled for 09/29/2016 at 4pm, facilitated by Olamide Lockett LCSW; he had shown a keen interest in cutting down on his smoking and eventually stopping it altogether, and we spoke about this several times during the current admission Multiple Neuroleptics: ([X]) Not Applicable OR Document below three failed attempts at monotherapy, or a plan to taper to monotherapy, or augmentation of Clozapine. () Patient's Diet: heart healthy Patient's Activity: without restrictions DC Disposition: to return to his residence in [facility] supervised/transitional housing in [place], [place]. Recommendations: I would recommend continuing switchover from oral Risperdal and Risperdal Consta to solely the latter and, eventually, following an extended interval of outpatient stabilization to consider attempting slow taper of Consta dose. Consideration might also be given to a trial/re-trial on a primary mood stabilizer. Referred To: Patient was referred directly back to/to resume his ongoing alf outpatient treatment with [facility] clinic in [place], [place] where he is scheduled for an appointment with his treating psychiatrist, Isabela Nash M.D., on 10/04/2016 at 12:30pm; he will also meet with Mera Ledbetter of [facility] at 3:30pm on the day after discharge, 09/16/2016, at his residence. He will also again receive the visiting nurse services of [facility] care, beginning on the afternoon of discharge, 09/15/2016. He was also given an appointment card for the next [facility] scheduled for 09/29/2016 at 4pm, facilitated by Olamide Lockett LCSW. Copies To: АНДРЕЙ ALFARO,LEOLA NASH M.D.,ISABELA
--- NOTE | 2016-09-15 12:35 | CP SOUTH PROGRESS NOTE PSYCH ---
Psych (Inpt) Progress Note Progress Note Include the following elements, when applicable: Involvement in the active treatment of the patient with behavioral observations of the patient and the patient's response to the treatment. Review of the ongoing treatment process in the context of the treatment plan. Indication of how multi-disciplinary staff members are carrying out the treatment plan. Plans for future interventions and recommendations for revision of the treatment plan. Liaison with other physicians/providers. Progress Note: PSYCHIATRIST NOTE (DISCHARGE), 09/15/2016: I discussed this patient's progress to date, current mental status, treatment and discharge plans with staff team today in the daily morning ITTM and met with him again myself in individual session prior to discharging him directly back to his [facility] supervised apartment; he was transported there by supervised apartment residential staff from [facility]. Nurses from [facility] will resume regular weekly visits, beginning on the afternoon of discharge, 09/15/2016; patient will be seeing his treating outpatient psychiatrist, Dr. Harmeet Nash, next 10/04/2016 at 12:30pm and Mera Ledbetter also on the day after discharge, 09/16/2016 at 3:30pm. Patient reports feeling ready and eager for discharge, is euthymic, future-oriented, showing no evidence of suicidal or homicidal ideation, plans, intent or impulses and well aware of his safety plan should he ever in future come to believe he is at acute risk of harming himself or others. Patient has tolerated receipt of the increased dose of Risperdal Consta (yesterday, 09/14/2016) well with no reported subjective or objective side effects in first 24 hours and no evidence of daytime sedation; patient is aware that the current oral dose of Risperdal will be continued temporarily but that the goal is complete switchover from oral to depot injectable formulation. I called into [facility], [place], [place] on date of discharge, 09/15/2016: Risperdal, 2mg: i tab nightly at HS (2mg/night); #14 with no refill (racing/ disorganized thoughts) Risperdal Consta, 37.5m.5mg I.M. Q2W (next dose due 09/28/2016); #1 dose ( for thinking) Cogentin, 1mg: i tab 2x/day (2mg daily); #28 with no refill (side effects-- stiff/tremulous muscles) I also encouraged patient to continue to utilize nicotine gum, 2mg OTC to help with cigarette/tobacco/nicotine cravings; he knows he should not smoke cigarettes while using the nicotine gum; patient was also given an appointment card for the next [facility] scheduled for 09/29/2016 at 4pm , facilitated by Olamide Lockett LCSW. Patient showed keen interest in cutting down and cessation of smoking, and we talked about this several times throughout the current admission.
[2016-09-15] MEDS ORDERED: NICORELIEF2 MG PO (12:37)
[2016-09-15] MEDS ORDERED: RISPERDAL37.5 MG/2 IM (13:18)
[2016-09-15] MEDS ORDERED: RISPERDAL1 M1 PO (13:19)
[2016-09-15] MEDS ORDERED: BENZTROPINE MESY1 M1 PO (13:19)
== END 2016-09-15 14:14 | DRG 885 ==
LOC: ERH 22:13 → ERHI 09-11 10:46 → CP SOUTH 09-11 10:46 → ENPENDDIS 09-15 23:59
PROVIDERS: Pediatrics; Student in an Organized Health Care Education/Training Program; ADMIT Psychiatry & Neurology Addiction Medicine
DX: F20.9 Schizophrenia, unspecified (principal)
CPT/HCPCS: 36415; 80307; 81003; 87086; 87491; 87591; 93005; 93010; G0480

== ENCOUNTER 2017-09-10 07:51 | Emergency (ER) | payer OTHER, MEDICARE ==
[~2017-09-10] VITALS: Ht 180.3 cm; Wt 99.8 kg
[~2017-09-10 07:51] MED LIST changes: +BENZTROPINE MESY1 M1 PO; +INVEGA3 MG IM; +NICORELIEF2 MG PO; +RISPERDAL1 M1 PO; +RISPERDAL2 M1 PO; +RISPERDAL37.5 MG/2 IM; +ZOFRAN ODT4 M1 SL
--- NOTE | 2017-09-10 08:30 | ED PSYCHIATRIC COMPLAINT ---
History of Present Illness General Chief Complaint: Psychiatric Related Complaint Stated Complaint: BIBA PSYCH EVAL Source: patient, old records, EMS Exam Limitations: confusion Vital Signs & Intake/Output Vital Signs & Intake/Output Vital Signs Date Time Temp Pulse Resp B/P B/P Pulse O2 O2 Flow FiO2 Mean Ox Delivery Rate 09/10 1551 98.7 56 16 139/90 98 Room Air 09/10 1550 98.7 56 16 139/90 98 Room Air 09/10 1356 97.2 63 18 122/70 99 09/10 1014 97.2 82 18 116/72 98 09/10 0756 96.2 62 18 131/72 99 Allergies Coded Allergies: divalproex sodium (From DEPAKOTE) (Mild, UPSET STOMACH 11/10/15) quetiapine (From SEROQUEL) (Mild, ABDOMINAL CRAMPING 11/10/15) Reconcile Medications Benztropine Mesylate 1 MG TABLET 1 TAB PO BID MENTAL HEALTH (Reported) Ondansetron (Zofran Odt) 4 MG TAB.RAPDIS 1 TAB SL TID PRN nausea Risperidone (Risperdal) 2 MG TABLET 1 TAB PO BID MENTAL HEALTH (Reported) Risperidone Microspheres (Risperdal Consta) 37.5 MG/2 ML SYRINGE 37.5 MG IM Q 2 WEEKS clarify thoughts next injection due on 09/28/2016 Triage Note: 31 Y/O MALE ALEJANDRA FROM [facility] IN [place]. PER EMS, PT WENT TO APPOINTMENT AND "THEY FELT HE WASN'T ACTING LIKE HIMSELF". PER EMS, PT MEDICATED WITH 1MG RISPERDAL ADN 1MG COGENTIN AT APPT TODAY. UNSURE IF PT IS COMPLIANT WITH HOME MEDS. PT CAME TO ED VOLUNTARY FOR EVAL. DENIES SI/HI. AWAITING EVAL Triage Nurses Notes Reviewed? yes Onset: Just prior to arrival Duration: minute(s):, constant, continues in ED Timing: recent history Severity: moderate Associated Symptoms: impaired concentration, insomnia HPI: Prior to admission patient was seen at [facility] given medications and referred for evaluation secondary to altered mental status. Reports being unable to sleep last night feeling fatigued. He denies fever chills nausea vomiting diarrhea abdominal pain chest pain shortness of breath headache dysuria rash bleeding suicidal ideation homicidal ideation. Past History Travel History Traveled to [place] past 21 day No Medical History Any Pertinent Medical History? see below for history Neurological: CONCUSSION EENT: NONE Cardiovascular: NONE Respiratory: NONE Gastrointestinal: NONE Hepatic: NONE Renal: NONE Musculoskeletal: NONE Psychiatric: bipolar disease, schizophrenia Endocrine: NONE Blood Disorders: NONE Cancer(s): NONE History of MRSA: No History of VRE: No History of CDIFF: No Surgical History Surgical History: unobtainable (per patient), N Psychosocial History Who do you live with Patient/Self Services at Home None What is your primary language Sinhala Tobacco Use: Current Daily Use Daily Tobacco Use Amount/Type: => 5 Cigarettes daily Family History Family History, If Any: FATHER (Diabetes). Hx Contributory? No Review of Systems Review of Systems Constitutional: Reports: no symptoms. EENTM: Reports: no symptoms. Respiratory: Reports: no symptoms. Cardiovascular: Reports: no symptoms. GI: Reports: no symptoms. Genitourinary: Reports: no symptoms. Musculoskeletal: Reports: no symptoms. Skin: Reports: no symptoms. Neurological/Psychological: Reports: see HPI, cognitive dysfunction, confusion. Hematologic/Endocrine: Reports: no symptoms. Immunologic/Allergic: Reports: no symptoms. All Other Systems: Reviewed and Negative Physical Exam Physical Exam General Appearance: well developed/nourished, alert, comfortable, obese Head: atraumatic, normal appearance Eyes: Bilateral: normal appearance, PERRL, EOMI. Ears, Nose, Throat: normal pharynx, normal ENT inspection, hearing grossly normal Neck: normal inspection, supple, full range of motion Respiratory: normal breath sounds, chest non-tender, no respiratory distress, quiet respiration, lungs clear Cardiovascular: regular rate/rhythm, normal peripheral pulses, norml femoral pulses equa Gastrointestinal: normal bowel sounds, soft, non-tender, no organomegaly Extremities: normal range of motion, no ligament instability Neurological/Psychiatric: no motor/sensory deficits, awake, alert, calm, instructional services librarian II- XII nml as tested, depressed affect Appearance/Memory/Insight: disheveled, impaired insight Behavoir/Eye Contact/Speech: cooperative, decreased rate of speech Thoughts/Hallucinations: no apparent hallucination Skin: intact, normal color, warm/dry SAD PERSONS Done? patient not suicidal Progress Differential Diagnosis: drug intoxication, drug overdose, drug withdrawal, electrolyte abnormality, hypoglycemia Plan of Care: Orders Procedure Date/time Status Regular Diet 09/10 L Active Patient Safety Monitor 09/10 1825 Active Patient Safety Monitor 09/10 1225 Active Patient Safety Monitor 09/10 0830 Active ETHANOL 09/10 08 Complete COMPREHENSIVE METABOLIC PANEL 09/10 829 Complete CBC WITHOUT DIFFERENTIAL 09/10 829 Complete ED CRISIS PSYCH CONSULT 09/10 829 Active URINE DRUG SCREEN FOR ER ONLY 09/10 0815 Complete Laboratory Tests 09/10/17 0845: Anion Gap 10, Estimated GFR > 60, BUN/Creatinine Ratio 10.0, Glucose 95, Calcium 9.7, Total Bilirubin 0.8, AST 33, ALT 36, Alkaline Phosphatase 61, Total Protein 7.6, Albumin 4.5, Globulin 3.1, Albumin/Globulin Ratio 1.5, CBC w Diff NO MAN DIFF REQ, RBC 4.85, MCV 85.8, MCH 28.0, MCHC 32.7 L, RDW 12.9, MPV 8.0, Gran % 67.3, Lymphocytes % 24.4, Monocytes % 6.2, Eosinophils % 1.8, Basophils % 0.3, Absolute Granulocytes 3.4, Absolute Lymphocytes 1.3, Absolute Monocytes 0.3, Absolute Eosinophils 0.1, Absolute Basophils 0, Serum Alcohol < 10.0 09/10/17 0819: Urine Opiates Screen < 100, Methadone Screen < 40, Barbiturate Screen < 60, Ur Phencyclidine Scrn < 6.00, Amphetamines Screen < 100, U Benzodiazepines Scrn < 85, Urine Cocaine Screen < 50, Urine Cannabis Screen < 5.00 Comments: To [facility] for psychiatric care. Departure Departure Time of Disposition: 1608 Disposition: OTHER PYSCH Condition: Stable Clinical Impression Primary Impression: Schizoaffective disorder Qualifiers: Schizoaffective disorder type: bipolar Qualified Code: F25.0 - Schizoaffective disorder, bipolar type Referrals: Patient Has No Primary Care Dr (PCP/Family) Departure Forms: Customer Survey General Discharge Information
[2017-09-10 09:11] LABS: ABSOLUTE BASOPHIL COUNT 0 /CUMM (0.0-0.2); ABSOLUTE EOSINOPHIL COUNT 0.1 /CUMM (0.0-0.7); ABSOLUTE GRANULOCYTE CT 3.4 /CUMM (1.4-6.5); ABSOLUTE LYMPH COUNT 1.3 /CUMM (1.2-3.4); ABSOLUTE MONOCYTE COUNT 0.3 /CUMM (0.10-0.60); BASOPHIL % 0.3 % (0.0-2.0); EOSINOPHIL % 1.8 % (0-5); HEMATOCRIT 41.7 % (42-52); MEAN CORPUSCULAR HGB CONC 32.7 G/DL (33.0-37.0); MEAN CORPUSCULAR VOLUME 85.8 FL (80.0-94.0); PLATELET COUNT 263 /CUMM (130-400); RBC DISTRIBUTION WIDTH 12.9 % (11.5-14.5); RED BLOOD CELL CT 4.85 /CUMM (4.70-6.10); WHITE BLOOD CELL COUNT 5.1 /CUMM (4.8-10.8)
[2017-09-10 09:21] LABS: GRANULOCYTE % 67.3 % (42.2-75.2)
--- NOTE | 2017-09-10 10:24 | ED PSY CRISIS COLLATERAL NOTE ---
Collateral Note Collateral Note Family/Inform/Jessica Contacts: BLAKE spoke with Kenyetta, a staff member from the [facility] ). Kenyetta states that she has noticed a difference in the patient over the last 5 days, since obtaining a $1600 check from [facility]. Kenyetta states that the staff were not aware that he received this check, until he came home with new sneakers and other things. Kenyetta states that the patient "is not doing well at all," and has been "acting bizarre and making bizarre statements." She reports that she was trying to talk with him today and he was "staring at her with eyes glazed over and mouth open," saying " do you want to hit me, why do you want to hit me?" She reports that she is unsure if he has been using any drugs or alcohol, noting that he has a history of drinking and was saying, " am I a crack head, did I do crack?" Kenyetta states that he receives Cogentin and Risperdal and did take his dose this AM. Kenyetta states that he did not sleep all night and was banging on his roommates door all night long. Kenyetta is very concerned about the patient and states that this is not his baseline presentation.
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
[2017-09-10 15:51] VITALS: BP 139/90
== END 2017-09-10 17:52 | disposition other institution (70) ==
LOC: ERH 07:51
PROVIDERS: Emergency Medicine
DX: F25.9 Schizoaffective disorder, unspecified (principal)
CPT/HCPCS: 80307; G0463; G0480